=== PATIENT | male | born 1945 | race Caucasian/White ===

== ENCOUNTER 2018-11-12 17:28 | Observation (INO) | payer MEDICARE, OTHER ==
[2018-11-12] MEDS: Dextrose 5%-Lactated Ringers 1,000 ML IV SCH (18:37)
[2018-11-12] MEDS: Morphine 2 MG/ML Syringe IVPUSH PRN (18:51)
[2018-11-12] MEDS: Sodium Chloride 0.9% 10 ML Syringe FLUSH PRN (18:55)
[2018-11-13] MEDS: Morphine 2 MG/ML Syringe IVPUSH PRN ×3 (00:48→11:25)
[2018-11-13] MEDS: Ondansetron 4 MG/2 ML SDV IVPUSH PRN ×3 (00:51→14:10)
[2018-11-13] MEDS: Dextrose 5%-Lactated Ringers 1,000 ML IV SCH ×3 (01:13→14:19)
--- NOTE | 2018-11-13 07:37 | PCM.PN ---
- General Info Date of Service: 11/13/18 Admission Dx/Problem (Free Text): Small Bowel Obstruction - Review of Systems General: Reports: Other (some sweating after morphine) Pulmonary: Reports: No Symptoms Gastrointestinal: Reports: Abdominal Pain (intermittant little change from yesterday), Nausea (occasional), Other (Complains of heartburn). Denies: Flatus Genitourinary: Reports: No Symptoms - Patient Data Vitals - Most Recent: Last Vital Signs Temp 98.4 F 11/13/18 00:30 Pulse 76 11/13/18 00:30 Resp 20 11/13/18 00:30 BP 128/81 11/13/18 00:30 Pulse Ox 95 11/13/18 00:30 Weight - Most Recent: 226 lb 8 oz I&O - Last 24 Hours: Intake & Output 11/12/18 11/13/18 11/13/18 22:59 06:59 14:59 Intake Total 593 1256 Output Total 225 300 Balance 368 956 Lab Results Last 24 Hours: Laboratory Results - last 24 hr 11/12/18 11/12/18 11/12/18 Range/Units 18:10 18:10 20:59 WBC 9.1 (4.5-12.0) X10-3/uL RBC 4.61 (4.30-5.75) x10(6)uL Hgb 15.1 (13.5-17.8) g/dL Hct 43.4 (30.0-51.3) % MCV 94.2 (80-96) fL MCH 32.8 (27.7-33.6) pg MCHC 34.8 (32.2-35.4) g/dL RDW 12.8 (11.5-15.5) % Plt Count 248 (125-369) X10(3)uL MPV 8.6 (7.4-10.4) fL Neut % (Auto) 76.6 (46-82) % Lymph % (Auto) 14.1 (13-37) % [place] % (Auto) 6.7 (4-12) % Eos % (Auto) 2 (1.0-5.0) % Baso % (Auto) 1 (0-2) % Neut # (Auto) 6.9 (1.6-8.3) # Lymph # (Auto) 1.3 (0.6-5.0) # [place] # (Auto) 0.6 (0.0-1.3) # Eos # (Auto) 0.2 (0.0-0.8) # Baso # (Auto) 0.1 (0.0-0.2) # Sodium 139 (135-145) mmol/L Potassium 3.8 (3.5-5.3) mmol/L Chloride 103 (100-110) mmol/L Carbon Dioxide 25 (21-32) mmol/L BUN 16 (7-18) mg/dL Creatinine 1.2 (0.70-1.30) mg/dL Est Cr Clr Drug Dosing 55.76 mL/min Estimated GFR (MDRD) 59 L (>60) BUN/Creatinine Ratio 13.3 (9-20) Glucose 110 (80-116) mg/dL Calcium 9.4 (8.6-10.2) mg/dL Total Bilirubin 1.0 (0.1-1.3) mg/dL AST 17 (5-25) IU/L ALT 24 (12-36) U/L Alkaline Phosphatase 53 L (56-112) IU/L Total Protein 7.2 (6.0-8.0) g/dL Albumin 4.2 (3.2-4.6) g/dL Globulin 3.0 g/dL Albumin/Globulin Ratio 1.4 Urine Color Yellow (YELLOW) Urine Appearance Cloudy (CLEAR) Urine pH 7.0 H (5.0-6.5) Ur Specific [place] 1.015 (1.010-1.025) Urine Protein Negative (NEGATIVE) mg/dL Urine Glucose (UA) Normal (NORMAL) mg/dL Urine Ketones Negative (NEGATIVE) mg/dL Urine Occult Blood Negative (NEGATIVE) Urine Nitrite Negative (NEGATIVE) Urine Bilirubin Negative (NEGATIVE) Urine Urobilinogen 1 H (NEGATIVE) mg/dL Ur Leukocyte Esterase Negative (NEGATIVE) Urine RBC 0-5 (0-5) Urine WBC 0-5 (0-5) Ur Squamous Epith Cells Occasional (NS,R,O) Amorphous Sediment Many Urine Bacteria Rare H (NS) Med Orders - Current: Current Medications Al Hydroxide/Mg Hydroxide (Mag-Al Susp) 30 ml PO Q4H PRN PRN Reason: Heartburn Dextrose/Lactated Ringer's (Dextrose 5%-Lactated Ringers) 1,000 mls @ 150 mls/ hr IV ASDIRECTED [facility] Last Admin: 11/13/18 01:13 Dose: 150 mls/hr Morphine Sulfate (Morphine) 1 - 2 mg IVPUSH Q1H PRN PRN Reason: Pain Last Admin: 11/13/18 00:48 Dose: 2 mg Ondansetron HCl (Zofran) 4 mg IVPUSH Q4H PRN PRN Reason: Nausea/Vomiting Last Admin: 11/13/18 00:51 Dose: 4 mg Pantoprazole Sodium (Protonix Iv) 40 mg IVPUSH DAILY [facility] Sodium Chloride (Saline Flush) 10 ml FLUSH ASDIRECTED PRN PRN Reason: Keep Vein Open Last Admin: 11/12/18 18:55 Dose: 10 ml - Exam General: Alert, Oriented Lungs: Normal Respiratory Effort GI/Abdominal Exam: Soft, Distended (mild distension), Tender (in upper abdomen, no guarding or percussion tenderness) Extremities: Normal Inspection - Problem List Review Problem List Initiated/Reviewed/Updated: Yes - My Orders Last 24 Hours: My Active Orders 11/12/18 17:57 Patient Status [ADT] Routine 11/12/18 18:00 Dextrose 5%-Lactated Ringers 1,000 ml IV ASDIRECTED 11/12/18 18:11 Intake and Output Strict [RC] QSHIFT Morphine 1 - 2 mg IVPUSH Q1H PRN 11/12/18 18:39 Sodium Chloride 0.9% [Saline Flush] 10 ml FLUSH ASDIRECTED PRN 11/12/18 19:19 Ondansetron [Zofran] 4 mg IVPUSH Q4H PRN 11/12/18 Dinner Nothing Per Oral Diet [DIET] 11/13/18 07:31 Alum Hydroxide/Mag Hydroxide [Mag-Al Susp] 30 ml PO Q4H PRN 11/13/18 07:32 CTA Abd Pelv w Cont [CT] Routine Code Status [Resuscitation Status] Routine 11/13/18 09:00 Pantoprazole [ProTONIX IV] 40 mg IVPUSH DAILY 11/14/18 05:00 BASIC METABOLIC PANEL,BMP [CHEM] Routine 11/14/18 05:11 CBC WITH MANUAL DIFF [HEME] AM - Assessment Assessment:: Abdominal pain - probable small bowel obstruction secondary to adhesions - Plan Plan:: Will obtain CT Scan of abdomen Continue NPO Protonix for heartburn Advised increased ambulation
[2018-11-13] MEDS: Aluminum Hydroxide/Magnesium Hydroxide Susp 30 ML Cup PO PRN ×2 (07:58→18:45)
[2018-11-13] MEDS ORDERED: Iopamidol 755 MG/ML 150 ML Bottle IV ONE (09:56)
[2018-11-13] MEDS ORDERED: Diatrizoate Meglumine/Diatrizoate Sodium 37% 30 ML Bottle PO SCH (10:00)
[2018-11-13] MEDS: Pantoprazole 40 MG Vial IVPUSH SCH (11:31)
--- NOTE | 2018-11-13 13:02 | CT ---
INDICATION: Abdominal pain, question small bowel obstruction, upper abdominal pain and nausea for one day. CT ABDOMEN AND PELVIS WITH CONTRAST: Spiral 3.75 mm axial sections were obtained through the abdomen and pelvis with oral and IV contrast (116 mL Isovue 370 at 2 mL/second), with sagittal and coronal reconstructions, 11/13/18 , and compared with 06/24/15. Total exam DLP = 1,599.67 mGy-cm. The lower lung goode and pleural spaces visualized again showed evidence of scarring at the lung bases and possibly some linear atelectasis on the right. Very minimal patchy pneumonia is difficult to entirely exclude with this appearance; however, no gross consolidating pneumonia or effusion was identified. The heart appeared normal in size. No pericardial effusion was seen. Multiple cystic masses are noted in the kidneys, mostly tiny or small in size. The largest on the right measured coronally was 36 x 40 mm, compared with the previous study of 2014, where the largest on the right measured 54 x 66 mm - question the possibility of interval aspiration at that site. The largest on the left in the lower middle pole medullary pelvic and cortical area extending exophytically measured 42 x 36 mm on the current study and 37 x 50 mm on the previous study with some calcification within it. Its stability over time is compatible with a benign structure. Benign multicystic changes are felt to be most likely with the multiple cysts present. The adrenal glands appeared normal. The spleen appeared normal with a tiny splenule along its inferior aspect. The pancreas also appeared normal, as did the liver. The stomach is markedly distended with diluted oral contrast. The oral contrast did not extend into the small bowel, raising question of a degree of gastric outlet obstruction. This may be on a functional basis, rather than mechanically obstructive process. Distended loops of small bowel are also noted - mostly jejunum, with air fluid levels, which may be on the basis of a distal mechanical obstruction and/or paralytic ileus. Severe gastroenteritis could also be present. There are also air fluid levels in the area of the cecum and proximal-most ascending colon. No definite mechanically obstructive process at that point is seen. Gas and stool are noted in the more distal colon - remainder of the ascending colon, transverse, descending, sigmoid, and rectosigmoid, as well as rectum. The prostate is enlarged, measuring 55 x 43 x 62 mm transverse x AP x craniocaudad diameters. Impression on the floor of the urinary bladder is noted with some thickening of the urinary bladder wall. This appearance may be secondary to trabeculation but should be correlated clinically, as cystitis could also be present. Mild to moderate hypertrophic degenerative changes and disk disease are suggested at L3-4, L4-5 with mildly hypertrophic changes at L5-S1 and some bulging disk also at L5-S1. Calcifications are noted in the abdominal aorta, splenic artery, renal arteries , iliac and femoral arteries. No definite herniation is seen. Retroperitoneal lymphadenopathy is noted, which is nonspecific, present previously, with no retroperitoneal masses identified. The appendix is absent, compatible with history of its removal. IMPRESSION: 1. Distention of proximal small bowel loops and gastric distention, etiology indeterminate. Air fluid levels extend into the proximal ascending colon. The appearance may be on the basis of a severe paralytic ileus or possibly an early gastroenteritis. Gas and stool is noted throughout the remainder of the colon with no definite mechanically obstructive process suggested strongly at this time. Also, no free air was seen. This finding should be correlated clinically. Additional examination, such as an oral contrast small bowel series may be helpful. 2. Prostatic enlargement impingement on the bladder with thickening of the bladder wall. 3. Retrosigmoid anastomosis. 4. Post appendectomy. 5. Post cholecystectomy. 6. Probable fibrotic changes in the lung bases but difficult to exclude minimal patchy bronchopneumonia at the lung bases. 7. ASD. 8. 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 9. 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 MTDD
[2018-11-13] MEDS ORDERED: Sodium Phosphate,Monobasic/Sodium Phosphate,Dibasic Enema 133 ML Bottle RECTAL ONE (13:59)
[2018-11-13] MEDS: Ketorolac 15 MG/ML SDV IVPUSH PRN ×2 (14:11→21:16)
[2018-11-13] MEDS: Metoclopramide 10 MG/2 ML SDV IVPUSH SCH ×2 (14:14→21:00)
--- NOTE | 2018-11-13 17:21 | PCM.PN ---
- General Info Date of Service: 11/13/18 Admission Dx/Problem (Free Text): Small Bowel Obstruction - Review of Systems Systems Review Comment:: CT scan reviewed and discussed with patient. Currently patient feels improved. Had some flatus today. Abdominal pain now mild and helped with toradol. No definite obstruction seen on CT. Discussed possible NG tube with patient but as clinically improved will hold off for now. - Patient Data Vitals - Most Recent: Last Vital Signs Temp 98.4 F 11/13/18 00:30 Pulse 76 11/13/18 00:30 Resp 20 11/13/18 00:30 BP 128/81 11/13/18 00:30 Pulse Ox 95 11/13/18 00:30 Weight - Most Recent: 226 lb 8 oz I&O - Last 24 Hours: Intake & Output 11/13/18 11/13/18 11/13/18 06:59 14:59 22:59 Intake Total 1256 1090 Output Total 300 200 Balance 956 890 Lab Results Last 24 Hours: Laboratory Results - last 24 hr 11/12/18 11/12/18 11/12/18 Range/Units 18:10 18:10 20:59 WBC 9.1 (4.5-12.0) X10-3/uL RBC 4.61 (4.30-5.75) x10(6)uL Hgb 15.1 (13.5-17.8) g/dL Hct 43.4 (30.0-51.3) % MCV 94.2 (80-96) fL MCH 32.8 (27.7-33.6) pg MCHC 34.8 (32.2-35.4) g/dL RDW 12.8 (11.5-15.5) % Plt Count 248 (125-369) X10(3)uL MPV 8.6 (7.4-10.4) fL Neut % (Auto) 76.6 (46-82) % Lymph % (Auto) 14.1 (13-37) % [place] % (Auto) 6.7 (4-12) % Eos % (Auto) 2 (1.0-5.0) % Baso % (Auto) 1 (0-2) % Neut # (Auto) 6.9 (1.6-8.3) # Lymph # (Auto) 1.3 (0.6-5.0) # [place] # (Auto) 0.6 (0.0-1.3) # Eos # (Auto) 0.2 (0.0-0.8) # Baso # (Auto) 0.1 (0.0-0.2) # Sodium 139 (135-145) mmol/L Potassium 3.8 (3.5-5.3) mmol/L Chloride 103 (100-110) mmol/L Carbon Dioxide 25 (21-32) mmol/L BUN 16 (7-18) mg/dL Creatinine 1.2 (0.70-1.30) mg/dL Est Cr Clr Drug Dosing 55.76 mL/min Estimated GFR (MDRD) 59 L (>60) BUN/Creatinine Ratio 13.3 (9-20) Glucose 110 (80-116) mg/dL Calcium 9.4 (8.6-10.2) mg/dL Total Bilirubin 1.0 (0.1-1.3) mg/dL AST 17 (5-25) IU/L ALT 24 (12-36) U/L Alkaline Phosphatase 53 L (56-112) IU/L Total Protein 7.2 (6.0-8.0) g/dL Albumin 4.2 (3.2-4.6) g/dL Globulin 3.0 g/dL Albumin/Globulin Ratio 1.4 Urine Color Yellow (YELLOW) Urine Appearance Cloudy (CLEAR) Urine pH 7.0 H (5.0-6.5) Ur Specific [place] 1.015 (1.010-1.025) Urine Protein Negative (NEGATIVE) mg/dL Urine Glucose (UA) Normal (NORMAL) mg/dL Urine Ketones Negative (NEGATIVE) mg/dL Urine Occult Blood Negative (NEGATIVE) Urine Nitrite Negative (NEGATIVE) Urine Bilirubin Negative (NEGATIVE) Urine Urobilinogen 1 H (NEGATIVE) mg/dL Ur Leukocyte Esterase Negative (NEGATIVE) Urine RBC 0-5 (0-5) Urine WBC 0-5 (0-5) Ur Squamous Epith Cells Occasional (NS,R,O) Amorphous Sediment Many Urine Bacteria Rare H (NS) Med Orders - Current: Current Medications Al Hydroxide/Mg Hydroxide (Mag-Al Susp) 30 ml PO Q4H PRN PRN Reason: Heartburn Last Admin: 11/13/18 07:58 Dose: 30 ml Diatrizoate Meglum/Diatrizoate Sod (Gastrografin 37%) 30 ml PO . DIRECTED [facility] Last Admin: 11/13/18 10:12 Dose: 30 ml Potassium Chloride/Dextrose/Sod Cl (D5 Ns With 20 Meq Kcl) 1,000 mls @ 125 mls/ hr IV ASDIRECTED [facility] Ketorolac Tromethamine (Toradol) 15 mg IVPUSH Q6H PRN PRN Reason: Pain Stop: 11/18/18 13:58 Last Admin: 11/13/18 14:11 Dose: 15 mg Metoclopramide HCl (Reglan) 10 mg IVPUSH Q6H [facility] Last Admin: 11/13/18 14:14 Dose: 10 mg Morphine Sulfate (Morphine) 1 - 2 mg IVPUSH Q1H PRN PRN Reason: Pain Last Admin: 11/13/18 11:25 Dose: 2 mg Ondansetron HCl (Zofran) 4 mg IVPUSH Q4H PRN PRN Reason: Nausea/Vomiting Last Admin: 11/13/18 14:10 Dose: 4 mg Pantoprazole Sodium (Protonix Iv) 40 mg IVPUSH DAILY [facility] Last Admin: 11/13/18 11:31 Dose: 40 mg Sodium Chloride (Saline Flush) 10 ml FLUSH ASDIRECTED PRN PRN Reason: Keep Vein Open Last Admin: 11/12/18 18:55 Dose: 10 ml Discontinued Medications Dextrose/Lactated Ringer's (Dextrose 5%-Lactated Ringers) 1,000 mls @ 150 mls/ hr IV ASDIRECTED [facility] Last Admin: 11/13/18 14:19 Dose: 150 mls/hr Iopamidol (Isovue-370 (76%)) 150 ml IV ONETIME ONE Stop: 11/13/18 09:57 Last Admin: 11/13/18 10:12 Dose: 116 ml Sodium Biphosphate/Sodium Phosphate (Fleet Enema) 133 ml RECTAL ONETIME ONE Stop: 11/13/18 14:00 - Problem List Review Problem List Initiated/Reviewed/Updated: Yes - My Orders Last 24 Hours: My Active Orders 11/12/18 17:57 Patient Status [ADT] Routine 11/12/18 18:11 Intake and Output Strict [RC] QSHIFT Morphine 1 - 2 mg IVPUSH Q1H PRN 11/12/18 18:39 Sodium Chloride 0.9% [Saline Flush] 10 ml FLUSH ASDIRECTED PRN 11/12/18 19:19 Ondansetron [Zofran] 4 mg IVPUSH Q4H PRN 11/13/18 07:31 Alum Hydroxide/Mag Hydroxide [Mag-Al Susp] 30 ml PO Q4H PRN 11/13/18 07:32 Code Status [Resuscitation Status] Routine 11/13/18 09:00 Pantoprazole [ProTONIX IV] 40 mg IVPUSH DAILY 11/13/18 10:00 Diatrizoate Cate/Diatrizoate Na [Gastrografin 37%] 30 ml PO . DIRECTED 11/13/18 13:57 Ketorolac [Toradol] 15 mg IVPUSH Q6H PRN 11/13/18 14:00 Metoclopramide [Reglan] 10 mg IVPUSH Q6H 11/13/18 17:15 Dextrose 5%-Normal Saline with KCl 20 mEq @ 125 mL/Hr (1000 mL) Dextrose 5%-0.9 % NaCl with KCl [D5 NS with 20 mEq KCl] 1,000 ml IV ASDIRECTED 11/14/18 05:00 BASIC METABOLIC PANEL,BMP [CHEM] Routine 11/14/18 05:11 CBC WITH MANUAL DIFF [HEME] AM - Assessment Assessment:: Abdominal pain - bowel distention - possible ileus - improving - Plan Plan:: Continue current plan change IV to add K+ recheck labs in am
[2018-11-13] MEDS: Dextrose 5%-0.9% NaCl with KCl 1,000 ML IV SCH (18:15)
[2018-11-14] MEDS: Metoclopramide 10 MG/2 ML SDV IVPUSH SCH ×2 (02:09→08:10)
[2018-11-14] MEDS: Dextrose 5%-0.9% NaCl with KCl 1,000 ML IV SCH (02:38)
[2018-11-14] MEDS: Pantoprazole 40 MG Vial IVPUSH SCH (09:20)
[2018-11-14] MEDS: Sodium Chloride 0.9% 10 ML Syringe FLUSH PRN (09:29)
[2018-11-14] MEDS ORDERED: Dextrose 5%-0.9% NaCl with KCl 1,000 ML IV SCH (10:30)
--- NOTE | 2018-11-14 10:34 | PCM.PN ---
- General Info Date of Service: 11/14/18 Admission Dx/Problem (Free Text): Small Bowel Obstruction Functional Status: Reports: Pain Controlled (Pain in abdomen has resolved. Only minimal upper abdominal soreness) - Review of Systems Pulmonary: Reports: No Symptoms Cardiovascular: Reports: No Symptoms Gastrointestinal: Reports: Diarrhea (passing multiple loose stools this am), Flatus, Other (heart burn now resolved). Denies: Nausea, Vomiting Genitourinary: Denies: Dysuria Musculoskeletal: Reports: No Symptoms - Patient Data Vitals - Most Recent: Last Vital Signs Temp 98.6 F 11/14/18 08:00 Pulse 82 11/13/18 23:30 Resp 14 11/14/18 08:00 BP 124/77 11/14/18 08:00 Pulse Ox 94 L 11/14/18 08:00 Weight - Most Recent: 226 lb 8 oz I&O - Last 24 Hours: Intake & Output 11/13/18 11/14/18 11/14/18 22:59 06:59 14:59 Intake Total 1095 1070 Output Total 450 125 Balance 645 945 Lab Results Last 24 Hours: Laboratory Results - last 24 hr 11/14/18 11/14/18 Range/Units 06:20 06:20 WBC 8.3 (4.5-12.0) X10-3/uL RBC 3.79 L (4.30-5.75) x10(6)uL Hgb 12.8 L (13.5-17.8) g/dL Hct 36.2 (30.0-51.3) % MCV 95.5 (80-96) fL MCH 33.7 H (27.7-33.6) pg MCHC 35.3 (32.2-35.4) g/dL RDW 12.5 (11.5-15.5) % Plt Count 192 (125-369) X10(3)uL MPV 8.4 (7.4-10.4) fL Neutrophils % (Manual) 75 (46-82) % Lymphocytes % (Manual) 20 (13-37) % Monocytes % (Manual) 4 (4-12) % Eosinophils % (Manual) 1 (0-5) % Sodium 141 (135-145) mmol/L Potassium 4.3 (3.5-5.3) mmol/L Chloride 109 D (100-110) mmol/L Carbon Dioxide 26 (21-32) mmol/L BUN 10 (7-18) mg/dL Creatinine 1.2 (0.70-1.30) mg/dL Est Cr Clr Drug Dosing 55.76 mL/min Estimated GFR (MDRD) 59 L (>60) BUN/Creatinine Ratio 8.3 L (9-20) Glucose 119 H (80-116) mg/dL Calcium 8.2 L (8.6-10.2) mg/dL Med Orders - Current: Current Medications Al Hydroxide/Mg Hydroxide (Mag-Al Susp) 30 ml PO Q4H PRN PRN Reason: Heartburn Last Admin: 11/13/18 18:45 Dose: 30 ml Diatrizoate Meglum/Diatrizoate Sod (Gastrografin 37%) 30 ml PO . [facility]ED [facility] Last Admin: 11/13/18 10:12 Dose: 30 ml Potassium Chloride/Dextrose/Sod Cl (D5 Ns With 20 Meq Kcl) 1,000 mls @ 125 mls/ hr IV Q8H [facility] Ketorolac Tromethamine (Toradol) 15 mg IVPUSH Q6H PRN PRN Reason: Pain Stop: 11/18/18 13:58 Last Admin: 11/13/18 21:16 Dose: 15 mg Morphine Sulfate (Morphine) 1 - 2 mg IVPUSH Q1H PRN PRN Reason: Pain Last Admin: 11/13/18 11:25 Dose: 2 mg Ondansetron HCl (Zofran) 4 mg IVPUSH Q4H PRN PRN Reason: Nausea/Vomiting Last Admin: 11/13/18 14:10 Dose: 4 mg Pantoprazole Sodium (Protonix Iv) 40 mg IVPUSH DAILY [facility] Last Admin: 11/14/18 09:20 Dose: 40 mg Sodium Chloride (Saline Flush) 10 ml FLUSH ASDIRECTED PRN PRN Reason: Keep Vein Open Last Admin: 11/14/18 09:29 Dose: 10 ml Discontinued Medications Dextrose/Lactated Ringer's (Dextrose 5%-Lactated Ringers) 1,000 mls @ 150 mls/ hr IV ASDIRECTED [facility] Last Admin: 11/13/18 14:19 Dose: 150 mls/hr Potassium Chloride/Dextrose/Sod Cl (D5 Ns With 20 Meq Kcl) 1,000 mls @ 125 mls/ hr IV ASDIRECTED [facility] Stop: 11/14/18 10:29 Last Admin: 11/14/18 02:38 Dose: 125 mls/hr Iopamidol (Isovue-370 (76%)) 150 ml IV ONETIME ONE Stop: 11/13/18 09:57 Last Admin: 11/13/18 10:12 Dose: 116 ml Metoclopramide HCl (Reglan) 10 mg IVPUSH Q6H [facility] Last Admin: 11/14/18 08:10 Dose: 10 mg Sodium Biphosphate/Sodium Phosphate (Fleet Enema) 133 ml RECTAL ONETIME ONE Stop: 11/13/18 14:00 Last Admin: 11/13/18 17:49 Dose: Not Given - Exam General: Alert, Oriented Lungs: Normal Respiratory Effort GI/Abdominal Exam: Soft, Tender (minimal tenderness in epigastrium, remainder of abdomen soft and non tender) - Problem List Review Problem List Initiated/Reviewed/Updated: Yes - My Orders Last 24 Hours: My Active Orders 11/13/18 10:00 Diatrizoate Cate/Diatrizoate Na [Gastrografin 37%] 30 ml PO . DIRECTED 11/13/18 13:57 Ketorolac [Toradol] 15 mg IVPUSH Q6H PRN 11/14/18 10:30 Dextrose 5%-0.9% NaCl with KCl [D5 NS with 20 mEq KCl] 1,000 ml IV Q8H 11/14/18 Breakfast Full Liquid Diet [DIET] - Assessment Assessment:: SBO/Ileus now resolving - Plan Plan:: begin full liquids stop reglan
[2018-11-14 17:42] VITALS: BP 142/76
--- NOTE | 2018-11-14 17:48 | PCM.PN ---
- General Info Date of Service: 11/14/18 Admission Dx/Problem (Free Text): Small Bowel Obstruction Functional Status: Reports: Other (No more pain) - Review of Systems Pulmonary: Reports: No Symptoms Gastrointestinal: Reports: Other (diarrhea now slowing, tolerated diet). Denies : Nausea, Vomiting - Patient Data Vitals - Most Recent: Last Vital Signs Temp 98.1 F 11/14/18 16:00 Pulse 66 11/14/18 16:00 Resp 14 11/14/18 16:00 BP 142/76 H 11/14/18 16:00 Pulse Ox 96 11/14/18 16:00 Weight - Most Recent: 226 lb 8 oz I&O - Last 24 Hours: Intake & Output 11/14/18 11/14/18 11/14/18 06:59 14:59 22:59 Intake Total 1070 602 Output Total 125 225 Balance 945 377 Lab Results Last 24 Hours: Laboratory Results - last 24 hr 11/14/18 11/14/18 Range/Units 06:20 06:20 WBC 8.3 (4.5-12.0) X10-3/uL RBC 3.79 L (4.30-5.75) x10(6)uL Hgb 12.8 L (13.5-17.8) g/dL Hct 36.2 (30.0-51.3) % MCV 95.5 (80-96) fL MCH 33.7 H (27.7-33.6) pg MCHC 35.3 (32.2-35.4) g/dL RDW 12.5 (11.5-15.5) % Plt Count 192 (125-369) X10(3)uL MPV 8.4 (7.4-10.4) fL Neutrophils % (Manual) 75 (46-82) % Lymphocytes % (Manual) 20 (13-37) % Monocytes % (Manual) 4 (4-12) % Eosinophils % (Manual) 1 (0-5) % Sodium 141 (135-145) mmol/L Potassium 4.3 (3.5-5.3) mmol/L Chloride 109 D (100-110) mmol/L Carbon Dioxide 26 (21-32) mmol/L BUN 10 (7-18) mg/dL Creatinine 1.2 (0.70-1.30) mg/dL Est Cr Clr Drug Dosing 55.76 mL/min Estimated GFR (MDRD) 59 L (>60) BUN/Creatinine Ratio 8.3 L (9-20) Glucose 119 H (80-116) mg/dL Calcium 8.2 L (8.6-10.2) mg/dL Med Orders - Current: Current Medications Al Hydroxide/Mg Hydroxide (Mag-Al Susp) 30 ml PO Q4H PRN PRN Reason: Heartburn Last Admin: 11/13/18 18:45 Dose: 30 ml Diatrizoate Meglum/Diatrizoate Sod (Gastrografin 37%) 30 ml PO . DIRECTED [facility] Last Admin: 11/13/18 10:12 Dose: 30 ml Potassium Chloride/Dextrose/Sod Cl (D5 Ns With 20 Meq Kcl) 1,000 mls @ 125 mls/ hr IV Q8H [facility] Last Admin: 11/14/18 10:44 Dose: 125 mls/hr Ketorolac Tromethamine (Toradol) 15 mg IVPUSH Q6H PRN PRN Reason: Pain Stop: 11/18/18 13:58 Last Admin: 11/13/18 21:16 Dose: 15 mg Morphine Sulfate (Morphine) 1 - 2 mg IVPUSH Q1H PRN PRN Reason: Pain Last Admin: 11/13/18 11:25 Dose: 2 mg Ondansetron HCl (Zofran) 4 mg IVPUSH Q4H PRN PRN Reason: Nausea/Vomiting Last Admin: 11/13/18 14:10 Dose: 4 mg Pantoprazole Sodium (Protonix Iv) 40 mg IVPUSH DAILY [facility] Last Admin: 11/14/18 09:20 Dose: 40 mg Sodium Chloride (Saline Flush) 10 ml FLUSH ASDIRECTED PRN PRN Reason: Keep Vein Open Last Admin: 11/14/18 09:29 Dose: 10 ml Discontinued Medications Dextrose/Lactated Ringer's (Dextrose 5%-Lactated Ringers) 1,000 mls @ 150 mls/ hr IV ASDIRECTED [facility] Last Admin: 11/13/18 14:19 Dose: 150 mls/hr Potassium Chloride/Dextrose/Sod Cl (D5 Ns With 20 Meq Kcl) 1,000 mls @ 125 mls/ hr IV ASDIRECTED [facility] Stop: 11/14/18 10:29 Last Admin: 11/14/18 02:38 Dose: 125 mls/hr Iopamidol (Isovue-370 (76%)) 150 ml IV ONETIME ONE Stop: 11/13/18 09:57 Last Admin: 11/13/18 10:12 Dose: 116 ml Metoclopramide HCl (Reglan) 10 mg IVPUSH Q6H [facility] Last Admin: 11/14/18 08:10 Dose: 10 mg Sodium Biphosphate/Sodium Phosphate (Fleet Enema) 133 ml RECTAL ONETIME ONE Stop: 11/13/18 14:00 Last Admin: 11/13/18 17:49 Dose: Not Given - Problem List Review Problem List Initiated/Reviewed/Updated: Yes - My Orders Last 24 Hours: My Active Orders 11/14/18 10:30 Dextrose 5%-0.9% NaCl with KCl [D5 NS with 20 mEq KCl] 1,000 ml IV Q8H 11/14/18 17:46 Ready for Discharge [RC] PER UNIT ROUTINE 11/14/18 Breakfast Full Liquid Diet [DIET] - Assessment Assessment:: SBO/Ileus now resolving - Plan Plan:: Discharge
== END 2018-11-14 16:20 | disposition home or self-care (01) ==
LOC: FB.MS 17:40
PROVIDERS: ADMIT Surgery; ATTEND Family Medicine
DX: K56.600 Partial intestinal obstruction, unspecified as to cause (principal); K56.7 Ileus, unspecified; K21.9 Gastro-esophageal reflux disease without esophagitis; I10 Essential (primary) hypertension
CPT/HCPCS: 36415; 74177; 80048; 80053; 81001; 85025; A9270; C9113; J1885; J2270; J2405; J2765; J3480; J7042; Q9963; Q9967

== ENCOUNTER 2019-03-21 20:14 | Emergency (ER) | payer MEDICARE, OTHER ==
[2019-03-21] MEDS ORDERED: Acetaminophen/HYDROcodone 325-5 MG Tab PO ONE (20:15)
--- NOTE | 2019-03-21 21:33 | EDM.PDOC ---
ED HPI GENERAL MEDICAL PROBLEM - General Chief Complaint: Neck Problem Stated Complaint: INJURED NECK Time Seen by Provider: 03/21/19 21:28 Source of Information: Reports: Patient History Limitations: Reports: No Limitations - History of Present Illness INITIAL COMMENTS - FREE TEXT/NARRATIVE: 73 yo male who fell back wards from the fourth rung of a ladder at home. He landed on the right shoulder and head hitting the wall. He denies any LOC. He endorses severe neck pain,radiating to the shoulders. Nothing helps. He is able to move his arms and legs.he has a h/o HTN and HLD stable. 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 Neck Pain Score (Numeric/FACES): 8 - Related Data Allergies Allergy/AdvReac Type Severity Reaction Status Date / Time No Known Allergies Allergy Verified 03/21/19 20:28 Home Meds: Home Meds Aspirin [Ecotrin EC] 325 mg PO BEDTIME 06/24/15 [History] Fish Oil/DHA/EPA [Fish Oil 1,200 MG] 1,200 mg PO BID 06/24/15 [History] Ibuprofen 600 mg PO BID 06/24/15 [History] Lisinopril [Zestril] 10 mg PO DAILY 06/24/15 [History] Multivitamin [Daily Multiple Vitamin] 1 tab PO DAILY 06/24/15 [History] Niacin [Slo-Niacin] 500 mg PO DAILY 06/24/15 [History] Omeprazole 20 mg PO DAILY 06/24/15 [History] Pravastatin [Pravachol] 40 mg PO BEDTIME 06/24/15 [History] Fenofibrate Nanocrystallized [Fenofibrate] 145 mg PO DAILY 11/12/18 [History] Past Medical History HEENT History: Reports: Cataract, Impaired Vision Other HEENT History: wears glasses Cardiovascular History: Reports: [place] Other Cardiovascular History: 1999 Gastrointestinal History: Reports: Diverticulosis Other Gastrointestinal History: hx of 8 inches of colon removed 5 years ago. - Infectious Disease History Infectious Disease History: Reports: Chicken Pox, Measles, Mumps - Past Surgical History GI Surgical History: Reports: Appendectomy, Hernia Repair/Other Social & Family History - Family History HEENT: Reports: Cataract Cardiac: Reports: High Cholesterol, [place] Endocrine/Metabolic: Reports: Diabetes, type II Oncologic: Reports: Esophageal - Tobacco Use Smoking Status *Q: Never Smoker - Caffeine Use Caffeine Use: Reports: Coffee - Alcohol Use Days Per Week of Alcohol Use: 7 Number of Drinks Per Day: 2 Total Drinks Per Week: 14 - Recreational Drug Use Recreational Drug Use: No ED ROS GENERAL - Review of Systems Review Of Systems: ROS reveals no pertinent complaints other than HPI. ED EXAM, UPPER BACK/NECK PAIN - Physical Exam Exam: See Below Exam Limited By: No Limitations General Appearance: Alert, WD/WN, No Apparent Distress Ears Exam: Normal External Exam Throat/Mouth Exam: Normal Inspection Head Exam: Atraumatic, Normocephalic. 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 As Tested, No Motor/Sensory Deficits, Oriented x 3 Psychiatric: Normal Affect Skin Exam: Normal Color Course - Vital Signs Last Recorded V/S: Last Vital Signs Temp 98.2 F 03/21/19 20:14 Pulse 81 03/21/19 20:14 Resp 18 03/21/19 20:14 BP 146/88 H 03/21/19 20:14 Pulse Ox 96 03/21/19 20:14 - Orders/Labs/Meds Orders: Active Orders 24 hr Category Date Time Status Cervical Spine 2V or 3V [CR] Stat Exams 03/21/19 22:52 Taken Cervical Spine wo Cont [CT] Stat Exams 03/21/19 22:34 Taken Thoracic Spine wo Cont [CT] Stat Exams 03/21/19 20:32 Taken Meds: Medications Discontinued Medications Generic Name Dose Route Start Last Admin Trade Name [place] PRN Reason Stop Dose Admin Hydroxyzine HCl 50 mg 03/21/19 21:51 03/21/19 22:24 Vistaril IM 03/21/19 21:52 50 mg ONETIME ONE Administration Morphine Sulfate 5 mg 03/21/19 21:50 03/21/19 22:20 Morphine IM 03/21/19 21:51 5 mg ONETIME ONE Administration Morphine Sulfate Confirm 03/21/19 22:10 03/21/19 22:24 Morphine Administered 03/21/19 22:11 Not Given Dose 10 mg .ROUTE .STK-MED ONE Departure - Departure Time of Disposition: 23:31 Disposition: Home, Self-Care 01 Condition: Good Clinical Impression: Cervical spine fracture - Discharge Information Instructions: Cervical Spine Fracture, Stable Referrals: David Bashir MD [Primary Care Provider] - Forms: ED Department Discharge Additional Instructions: Wear collar 04/02. Have MRI saturday. Call Dr Frias at [phone] at [facility] after MRI - Problem List & Annotations (1) Cervical spine fracture SNOMED Code(s): 656750843 Code(s): S12.9XXA - FRACTURE OF NECK, UNSPECIFIED, INITIAL ENCOUNTER Status : Acute Current Visit: Yes Qualifiers: Encounter type: initial encounter Cervical vertebra fracture level: C5 Fracture alignment: nondisplaced - Problem List Review Problem List Initiated/Reviewed/Updated: Yes - My Orders Last 24 Hours: My Active Orders 03/21/19 20:32 Thoracic Spine wo Cont [CT] Stat 03/21/19 22:34 Cervical Spine wo Cont [CT] Stat 03/21/19 22:52 Cervical Spine 2V or 3V [CR] Stat - Assessment/Plan Last 24 Hours: My Active Orders 03/21/19 20:32 Thoracic Spine wo Cont [CT] Stat 03/21/19 22:34 Cervical Spine wo Cont [CT] Stat 03/21/19 22:52 Cervical Spine 2V or 3V [CR] Stat Plan: I spoke with Dr Frias at [facility]. he wanted cervical spine xrays in an [place] [facility]. This was done. Patient was discharged to have MRI on Saturday,and follow up with the clinic.
[2019-03-21] MEDS ORDERED: Morphine 10 MG/ML Syringe IM ONE (21:50)
[2019-03-21] MEDS ORDERED: hydrOXYzine HCl 50 MG/ML SDV IM ONE (21:51)
[2019-03-21] MEDS ORDERED: Morphine 10 MG/ML SDV ONE (22:10)
[2019-03-22 06:17] VITALS: BP 123/85
== END 2019-03-21 23:55 | disposition home or self-care (01) ==
LOC: FB.ED 20:14
DX: S12.401A Unspecified nondisplaced fracture of fifth cervical vertebra, initial encounter for closed fracture (principal); S13.160A Subluxation of C5/C6 cervical vertebrae, initial encounter; Z79.82 Long term (current) use of aspirin; Z79.899 Other long term (current) drug therapy; W11.XXXA Fall on and from ladder, initial encounter; Y92.009 Unspecified place in unspecified non-institutional (private) residence as the place of occurrence of the external cause
CPT/HCPCS: 72040; 72125; 72128; 96372; 99284; J2270; J3410; A9270-GY

== ENCOUNTER 2020-10-28 14:46 | Emergency (ER) | payer MEDICARE, OTHER ==
[2020-10-28] MEDS ORDERED: Sodium Chloride 0.9% 10 ML Syringe FLUSH PRN (15:00)
--- NOTE | 2020-10-28 15:34 | EDM.PDOC ---
ED HPI GENERAL MEDICAL PROBLEM - General Stated Complaint: dizziness and weakness Time Seen by Provider: 10/28/20 14:55 Source of Information: Reports: Patient, Family History Limitations: Reports: No Limitations - History of Present Illness INITIAL COMMENTS - FREE TEXT/NARRATIVE: Patient presented to the ED because of dizziness and weakness for 1 week. He said he is on a diet for a week now because he wanted to loose his fat belly. There is no fever/chills,cough or cold symptoms. Denies any N/V/D. - Related Data Allergies Allergy/AdvReac Type Severity Reaction Status Date / Time No Known Allergies Allergy Verified 03/21/19 20:28 Home Meds: Home Meds Aspirin [Ecotrin EC] 325 mg PO BEDTIME 06/24/15 [History] Fish Oil/DHA/EPA [Fish Oil 1,200 MG] 1,200 mg PO BID 06/24/15 [History] Ibuprofen 600 mg PO BID 06/24/15 [History] Multivitamin [Daily Multiple Vitamin] 1 tab PO DAILY 06/24/15 [History] Niacin [Slo-Niacin] 500 mg PO DAILY 06/24/15 [History] Omeprazole 20 mg PO DAILY 06/24/15 [History] Pravastatin [Pravachol] 40 mg PO BEDTIME 06/24/15 [History] lisinopriL [Zestril] 10 mg PO DAILY 06/24/15 [History] Fenofibrate Nanocrystallized [Fenofibrate] 145 mg PO DAILY 11/12/18 [History] Past Medical History HEENT History: Reports: Cataract, Impaired Vision Other HEENT History: wears glasses Cardiovascular History: Reports: [place] Other Cardiovascular History: 1999 Gastrointestinal History: Reports: Diverticulosis Other Gastrointestinal History: hx of 8 inches of colon removed 5 years ago. - Infectious Disease History Infectious Disease History: Reports: Chicken Pox, Measles, Mumps - Past Surgical History GI Surgical History: Reports: Appendectomy, Hernia Repair/Other Social & Family History - Family History Family Medical History: No Pertinent Family History HEENT: Reports: Cataract Cardiac: Reports: High Cholesterol, [place] Endocrine/Metabolic: Reports: Diabetes, type II Oncologic: Reports: Esophageal - Caffeine Use Caffeine Use: Reports: Coffee ED ROS GENERAL - Review of Systems Review Of Systems: See Below Constitutional: Reports: Weakness HEENT: Reports: No Symptoms Respiratory: Reports: No Symptoms Cardiovascular: Reports: No Symptoms, Palpitations GI/Abdominal: Reports: No Symptoms : Reports: No Symptoms Musculoskeletal: Reports: No Symptoms Skin: Reports: No Symptoms Neurological: Reports: Dizziness Psychiatric: Reports: No Symptoms Hematologic/Lymphatic: Reports: No Symptoms ED EXAM, GENERAL - Physical Exam Exam: See Below Exam Limited By: No Limitations General Appearance: Alert, No Apparent Distress Ears: Normal External Exam, Normal Canal Nose: Normal Inspection, Normal Mucosa, No Blood Throat/Mouth: Normal Inspection, Normal Lips Head: Atraumatic, Normocephalic Neck: Normal Inspection, Supple, Non-Tender, Full Range of Motion Respiratory/Chest: No Respiratory Distress, Lungs Clear, Normal Breath Sounds, No Accessory Muscle Use, Chest Non-Tender Cardiovascular: Normal Peripheral Pulses, Regular Rate, Rhythm, No Edema, No Gallop, No JVD, No Murmur, No Rub GI/Abdominal: Normal Bowel Sounds, Soft, Non-Tender, No Organomegaly, No Distention, No Abnormal Bruit, No Mass, Pelvis Stable Back Exam: Normal Inspection, Full Range of Motion Extremities: Normal Inspection, Normal Range of Motion, Non-Tender Neurological: Alert, Oriented, CN II-XII Intact, Normal Cognition, Normal Gait, Normal Reflexes, No Motor/Sensory Deficits Psychiatric: Normal Affect Skin Exam: Warm #1 Interpretation EKG Date: 10/28/20 Time: 15:15 Rhythm: NSR Rate (Beats/Min): 68 [place]: Normal P-Wave: Present QRS: Normal ST-T: Normal QT: Normal Comparison: NA - No Prior EKG EKG Interpretation Comments: NSR Prolonged SD interval Course - Vital Signs Text/Narrative:: Lab/EKG result was reviewed and discussed with patient and his NS 1 L bolus - Orders/Labs/Meds Orders: Active Orders 24 hr Category Date Time Status EKG Documentation Completion [RC] ASDIRECTED Care 10/28/20 15:02 Active Sodium Chloride 0.9% [Saline Flush] Med 10/28/20 15:00 Active 10 ml FLUSH ASDIRECTED PRN Saline Lock Insert [OM.PC] Routine Oth 10/28/20 15:00 Ordered EKG 12 Lead [EK] Routine Ther 10/28/20 15:00 Ordered Medication Orders Sodium Chloride (Sodium Chloride 0.9% 10 Ml Syringe) 10 ml FLUSH ASDIRECTED PRN PRN Reason: Keep Vein Open Labs: Laboratory Tests 10/28/20 10/28/20 10/28/20 Range/Units 15:00 15:00 15:00 WBC 6.8 (3.2-10.1) x10-3/uL RBC 4.32 (3.90-5.90) x10(6)uL Hgb 14.1 (12.9-17.7) g/dL Hct 41.0 (38.3-50.1) % MCV 94.9 (80.8-98.7) fL MCH 32.7 (27.0-33.3) pg MCHC 34.4 (28.7-35.3) g/dL RDW 13.1 (12.4-15.0) % Plt Count 276 (117-477) x10(3)uL MPV 7.9 (6.7-11.0) fL Neut % (Auto) 62.8 (40.3-71.8) % Lymph % (Auto) 25.9 (15.8-45.3) % [place] % (Auto) 7.6 (5.5-15.2) % Eos % (Auto) 2.6 (0.1-6.8) % Baso % (Auto) 1.1 (0.3-3.8) % Neut # (Auto) 4.2 (1.7-6.9) x10-3/uL Lymph # (Auto) 1.8 (0.5-4.5) x10-3/uL [place] # (Auto) 0.5 (0.0-1.2) x10-3/uL Eos # (Auto) 0.2 (0.0-0.6) x10-3/uL Baso # (Auto) 0.1 (0.0-0.3) x10-3/uL Sodium 137 (135-145) mmol/L Potassium 3.9 (3.5-5.3) mmol/L Chloride 100 D (100-110) mmol/L Carbon Dioxide 25 (21-32) mmol/L BUN 20 H D (7-18) mg/dL Creatinine 1.4 H (0.70-1.30) mg/dL Est Cr Clr Drug Dosing TNP Estimated GFR (MDRD) 49 L (>60) BUN/Creatinine Ratio 14.3 (9-20) Glucose 152 H (80-116) mg/dL Calcium 8.9 (8.6-10.2) mg/dL Total Bilirubin 0.5 (0.1-1.3) mg/dL AST 19 D (5-25) IU/L ALT 24 (12-36) U/L Alkaline Phosphatase 69 (56-112) IU/L Troponin I 5.7 (4.0-60.3) pg/mL Total Protein 7.3 (6.0-8.0) g/dL Albumin 3.8 (3.2-4.6) g/dL Globulin 3.5 g/dL Albumin/Globulin Ratio 1.1 Meds: Medications Generic Name Dose Route Start Last Admin Trade Name Freq PRN Reason Stop Dose Admin Sodium Chloride 10 ml 10/28/20 15:00 Sodium Chloride 0.9% 10 Ml Syringe FLUSH ASDIRECTED PRN Keep Vein Open Departure - Departure Time of Disposition: 16:30 Disposition: Home, Self-Care 01 Condition: Good Clinical Impression: Dehydration, SATSIH (acute kidney injury), Weakness - Discharge Information Instructions: Weakness, [id number], Dehydration, Elderly, Kleu-ev-Yarl, Acute Kidney Injury, Adult Additional Instructions: Please read discharge instructions on dehydration,acute kidney injury and weakeness Drink at least 1.5 to 2 liters of water a day Don't drink too much coffee because caffeine is a diuretic-it flashes fluids and electrolytes out of your body which makes you feel weak Follow up as needed - My Orders Last 24 Hours: My Active Orders 10/28/20 15:00 Sodium Chloride 0.9% [Saline Flush] 10 ml FLUSH ASDIRECTED PRN Saline Lock Insert [OM.PC] Routine EKG 12 Lead [EK] Routine 10/28/20 15:02 EKG Documentation Completion [RC] ASDIRECTED - Assessment/Plan Last 24 Hours: My Active Orders 10/28/20 15:00 Sodium Chloride 0.9% [Saline Flush] 10 ml FLUSH ASDIRECTED PRN Saline Lock Insert [OM.PC] Routine EKG 12 Lead [EK] Routine 10/28/20 15:02 EKG Documentation Completion [RC] ASDIRECTED
[2020-10-28 21:23] VITALS: BP 123/80; PULSE 63
[2020-10-28] MEDS ORDERED: Sodium Chloride 0.9% 1,000 ML IV ONE (21:25)
== END 2020-10-28 17:17 | disposition home or self-care (01) ==
LOC: FB.ED 14:46
DX: E86.0 Dehydration (principal); N17.9 Acute kidney failure, unspecified; I25.2 Old myocardial infarction; Z20.822 Contact with and (suspected) exposure to COVID-19; Z79.82 Long term (current) use of aspirin; Z79.899 Other long term (current) drug therapy
CPT/HCPCS: 36415; 80053; 84484; 85025; 93005; 99285; J7030; U0002

== ENCOUNTER 2021-11-13 17:24 | Observation (INO) | payer MEDICARE, OTHER ==
[2021-11-13] MEDS ORDERED: Acetaminophen/HYDROcodone 325-7.5 MG Tab PO PRN (18:23)
[2021-11-13] MEDS ORDERED: Sodium Chloride 0.9% 1,000 ML IV SCH (18:45)
[2021-11-13] MEDS ORDERED: Morphine 4 MG/ML VIAL IVPUSH PRN (19:36)
[2021-11-13] MEDS ORDERED: Iopamidol 755 MG/ML 150 ML Bottle IV ONE (19:52)
[2021-11-13] MEDS: Ondansetron 4 MG/2 ML SDV IVPUSH SCH (20:17)
[2021-11-13] MEDS ORDERED: Diatrizoate Meglumine/Diatrizoate Sodium 37% 30 ML Bottle PO ONE (21:52)
[2021-11-13] MEDS: Sodium Chloride 0.9% 1,000 ML IV SCH (22:30)
[2021-11-14] MEDS: Ondansetron 4 MG/2 ML SDV IVPUSH SCH ×2 (04:26→12:44)
[2021-11-14] MEDS: Sodium Chloride 0.9% 1,000 ML IV SCH (08:06)
[2021-11-14 09:29] VITALS: BP 136/86; PULSE 74
== END 2021-11-14 15:25 | disposition home or self-care (01) ==
LOC: FB.MS 17:24
PROVIDERS: ADMIT Student in an Organized Health Care Education/Training Program; ATTEND Student in an Organized Health Care Education/Training Program
DX: K56.600 Partial intestinal obstruction, unspecified as to cause (principal); I25.2 Old myocardial infarction; E78.00 Pure hypercholesterolemia, unspecified; I10 Essential (primary) hypertension; E66.9 Obesity, unspecified; Z20.822 Contact with and (suspected) exposure to COVID-19; Z98.890 Other specified postprocedural states; Z90.49 Acquired absence of other specified parts of digestive tract; Z79.82 Long term (current) use of aspirin; Z79.899 Other long term (current) drug therapy; Z87.19 Personal history of other diseases of the digestive system
CPT/HCPCS: 36415; 74177; 80048; 80053; 85025; 96374; 96375; 96376; A9270-GY; G0378; G0379; J2270; J2405; J7030; Q9963; Q9967; U0002

== ENCOUNTER 2022-08-02 16:52 | Emergency (ER) | payer MEDICARE, OTHER ==
[2022-08-02] MEDS ORDERED: Nitroglycerin 0.4 MG Tab.SL SL ONE ×4 (17:21→17:50)
[2022-08-02 17:28] VITALS: PULSE 57
[2022-08-02 17:30] LABS: ESTIMATED GFR 88 mL/min (>60)
[2022-08-02] MEDS ORDERED: Heparin Sodium 5,000 Units/ML Vial IVPUSH ONE (17:50)
[2022-08-02] MEDS ORDERED: Heparin Sodium/0.45% NaCl 500 ML IV SCH (18:00)
[2022-08-02 18:24] VITALS: BP 167/94
== END 2022-08-02 19:15 ==
LOC: FB.ED 16:52
DX: I21.4 Non-ST elevation (NSTEMI) myocardial infarction (principal); I11.0 Hypertensive heart disease with heart failure; I50.9 Heart failure, unspecified; K21.9 Gastro-esophageal reflux disease without esophagitis; E78.5 Hyperlipidemia, unspecified; E78.00 Pure hypercholesterolemia, unspecified; I25.2 Old myocardial infarction; E66.9 Obesity, unspecified; Z68.30 Body mass index [BMI] 30.0-30.9, adult; Z79.899 Other long term (current) drug therapy; Z88.8 Allergy status to other drugs, medicaments and biological substances
CPT/HCPCS: 36415; 71045; 80053; 83880; 84484; 85025; 85610; 85730; 93005; 93010; 96365; 99285; A9270; J1644